=== PATIENT | male | born 1980 | race Caucasian/White ===

== ENCOUNTER 2016-10-19 15:19 | Emergency (ER) | payer BC ==
[~2016-10-19 15:19] MED LIST: ADVIL200 M1 PO; AUGMENTIN 875 M1 TAB PO; CARAFATE1 GM/10 ML PO; CIPRODEX 0.3%-7.5 ML OT; CORDROL20 MG PO; DARVOCET N 1001 TAB PO; DAYPRO600 M1 PO; INDOMETHACIN50 MG PO; LEVAQUIN750 M1 PO; MIRALAX POWDER17 G1 PO; Motrin,Rufen800 MG PO; NAPROSYN500 MG PO; NORCO 325 MG-51 TAB PO; PREDNICOT20 MG PO; PREDNISONE10 MG PO; PROVENTIL0.09 MG/A1 INH; ROBAXIN750 MG PO; SUNMARK OMEPRAZ20 M1 PO; TYLENOL W/CODEI1 TA2 PO; TYLENOL325 M2 PO; ZANTAC150 MG PO; ZITHROMAX250 MG PO; ZOFRAN ODT4 MG SL; ZOFRAN4 MG PO
[2016-10-19] MEDS ORDERED: PREDNISONE10 MG PO (15:51)
== END 2016-10-19 16:31 | disposition home or self-care (01) ==
LOC: ED 15:19
DX: M79.671 Pain in right foot (principal); R03.0 Elevated blood-pressure reading, without diagnosis of hypertension

== ENCOUNTER 2016-12-23 15:36 | Emergency (ER) | payer BC ==
[~2016-12-23] VITALS: Wt 161.5 kg
== END 2016-12-23 19:09 | disposition home or self-care (01) ==
LOC: ED 15:36
DX: M79.661 Pain in right lower leg (principal)

== ENCOUNTER 2021-02-18 06:43 | Emergency (ER) | payer BC ==
[~2021-02-18] VITALS: Ht 182.8 cm; Wt 108.9 kg
[2021-02-18 07:43] LABS: BASO # 0.1 10*3/uL (0.0-0.1); BASO % 0.5 % (0.0-1.0); EOS # 0.5 10*3/uL (0.0-0.4); EOS % 4.5 % (1.0-4.0); HEMATOCRIT 42.5 % (42.0-52.0); LYMPH # 1.9 10*3/uL (1.3-4.4); LYMPH % 18.9 % (27.0-41.0); MEAN CELL VOLUME 86.9 fl (80.0-94.0); MEAN CORPUSCULAR HGB CONC 33.4 g/dl (33.0-37.0); MEAN PLATELET VOLUME 9.3 fl (9.6-12.3); MONO # 0.9 10*3/uL (0.1-1.0); MONO % 8.6 % (3.0-9.0); NEUT # 6.8 10*3/uL (2.3-7.9); NEUT % 67.1 % (47.0-73.0); PLATELET COUNT AUTOMATED 289 10*3/uL (130-400); RED BLOOD COUNT 4.89 10*6/uL (4.50-5.90); RED CELL DISTRI WIDTH 12.8 % (0-14.5); WHITE BLOOD COUNT 10.1 10*3/uL (4.8-10.8)
[2021-02-18 07:56] LABS: ALBUMIN 3.2 gm/dl (3.1-4.5); ALKALINE PHOSPHATASE 124 U/L (45-117); BUN 17 mg/dl (7-24); CHLORIDE 108 mmol/L (98-107); CREATININE 0.87 mg/dL (0.70-1.30); SGOT/AST 34 IU/L (3-35); SGPT/ALT 70 U/L (12-78); SODIUM 138 mmol/L (136-145); TOTAL PROTEIN 7.4 gm/dL (6.4-8.2)
== END 2021-02-18 10:33 | disposition home or self-care (01) ==
LOC: ED 06:43
PROVIDERS: Student in an Organized Health Care Education/Training Program
DX: B34.9 Viral infection, unspecified (principal); Z20.822 Contact with and (suspected) exposure to COVID-19

== ENCOUNTER 2021-11-01 10:32 | Emergency (ER) | payer OTHER ==
[~2021-11-01] VITALS: Ht 185.4 cm; Wt 109.8 kg
== END 2021-11-01 14:25 | disposition home or self-care (01) ==
LOC: ED 10:32
DX: S66.911A Strain of unspecified muscle, fascia and tendon at wrist and hand level, right hand, initial encounter (principal); X50.9XXA Other and unspecified overexertion or strenuous movements or postures, initial encounter; Y93.89 Activity, other specified; Y92.89 Other specified places as the place of occurrence of the external cause; Y99.8 Other external cause status

== ENCOUNTER 2021-11-20 07:21 | Emergency (ER) | payer OTHER ==
[~2021-11-20] VITALS: Wt 155.6 kg
[2021-11-20] MEDS ORDERED: PREDNISONE50 MG PO (08:16)
== END 2021-11-20 08:24 | disposition home or self-care (01) ==
LOC: ED 07:21
DX: S66.911A Strain of unspecified muscle, fascia and tendon at wrist and hand level, right hand, initial encounter (principal); X50.0XXA Overexertion from strenuous movement or load, initial encounter; Y93.89 Activity, other specified; Y92.89 Other specified places as the place of occurrence of the external cause; Y99.8 Other external cause status

== ENCOUNTER → 2022-03-07 | Day surgery (SDC) | payer OTHER ==
[2022-03-05 16:02] LABS: BUN 14 mg/dl (7-24); CHLORIDE 108 mmol/L (98-107); CREATININE 0.91 mg/dL (0.70-1.30); POTASSIUM 3.9 mmol/L (3.5-5.1); SODIUM 140 mmol/L (136-145)
[~2022-03-07] VITALS: Ht 185.4 cm; Wt 156.5 kg
[~2022-03-07] MED LIST changes: +PREDNISONE50 MG PO
[2022-03-07 09:36] VITALS: BP 144/60
[2022-03-07 11:31] VITALS: BP 117/60
[2022-03-07 11:45] VITALS: BP 124/65
[2022-03-07 11:58] VITALS: BP 133/64
[2022-03-07 13:18] VITALS: BP 144/60
== END | disposition home or self-care (01) ==
LOC: SDC 03-04 08:00
PROVIDERS: ATTEND Orthopaedic Surgery
DX: G56.03 Carpal tunnel syndrome, bilateral upper limbs (principal); G60.8 Other hereditary and idiopathic neuropathies; I10 Essential (primary) hypertension; J45.909 Unspecified asthma, uncomplicated; Z79.899 Other long term (current) drug therapy

== ENCOUNTER → 2022-05-02 | Day surgery (SDC) | payer OTHER ==
[~2022-05-02] VITALS: Ht 185.4 cm; Wt 156.5 kg
[2022-05-02 09:29] VITALS: BP 134/87
[2022-05-02 10:55] VITALS: BP 119/74
[2022-05-02 11:10] VITALS: BP 115/78
[2022-05-02 11:25] VITALS: BP 123/67
== END | disposition home or self-care (01) ==
LOC: SDC 04-29 09:30
PROVIDERS: ATTEND Orthopaedic Surgery
DX: G56.03 Carpal tunnel syndrome, bilateral upper limbs (principal); J45.909 Unspecified asthma, uncomplicated; G60.8 Other hereditary and idiopathic neuropathies; Z79.84 Long term (current) use of oral hypoglycemic drugs; Z87.891 Personal history of nicotine dependence; Z79.899 Other long term (current) drug therapy

== ENCOUNTER → 2022-10-21 | Outpatient (CLI) | payer OTHER | END | disposition home or self-care (01) | LOC: ORTHO 02:26 | PROVIDERS: ATTEND Orthopaedic Surgery | DX: S63.501D Unspecified sprain of right wrist, subsequent encounter (principal); M19.031 Primary osteoarthritis, right wrist; Z98.890 Other specified postprocedural states; X58.XXXD Exposure to other specified factors, subsequent encounter ==

== ENCOUNTER → 2022-11-18 | Outpatient (CLI) | payer OTHER | END | disposition home or self-care (01) | LOC: ORTHO 01:19 | PROVIDERS: ATTEND Orthopaedic Surgery | DX: M19.032 Primary osteoarthritis, left wrist (principal) ==

== ENCOUNTER 2023-07-17 12:06 | Emergency (ER) | payer OTHER ==
[~2023-07-17] VITALS: Ht 185.4 cm; Wt 158.8 kg
[2023-07-17] MEDS ORDERED: methylPREDNISolone sod succ 125 MG VIAL IM ONE (14:00)
[2023-07-17] MEDS ORDERED: PREDNISONE20 M1 PO (14:01)
== END 2023-07-17 14:27 | disposition home or self-care (01) ==
LOC: ED 12:06
DX: M25.562 Pain in left knee (principal); M79.89 Other specified soft tissue disorders; E87.6 Hypokalemia; J45.909 Unspecified asthma, uncomplicated; Z98.890 Other specified postprocedural states